=== PATIENT | male | born 1950 | race African-American/Black ===

== ENCOUNTER 2021-06-30 09:58 | Inpatient (IN) | payer MEDICARE, OTHER ==
[~2021-06-30] VITALS: Ht 172.7 cm; Wt 73.0 kg
[2021-06-30 12:14] LABS: MEAN CORPUSCULAR HEMOGLOBIN 29.7 pg (28.0-32.0); MEAN CORPUSCULAR VOLUME 89.5 fL (80.0-94.0); MEAN PLATELET VOLUME 9.6 fl (7.4-10.4); PLATELET 58 x1000/uL (130-400); RED BLOOD CELL COUNT 2.23 mill/uL (4.7-6.1); RED CELL DISTRIBUTION WIDTH 16.1 % (11.6-14.6)
[2021-06-30 12:21] LABS: HEMATOCRIT. 19.9 % (42.0-52.0); HEMOGLOBIN. 6.6 g/dL (14.0-18.0)
[2021-06-30 12:22] LABS: CHLORIDE 110 mEq/L (98-107)
[2021-06-30 13:09] LABS: PLATELET ESTIMATE DECREASED
[2021-06-30 13:20] LABS: PROTHROMBIN TIME 10.8 sec (9.6-11.0)
[2021-06-30] MEDS ORDERED: TRAMADOL 50MG TABLET PO PRN (15:00)
[2021-06-30] MEDS ORDERED: CLONIDINE 0.1MG TABLET PO PRN (15:00)
[2021-06-30] MEDS ORDERED: NITROGLYCERIN 0.4MG TABLET SL SL PRN (15:00)
[2021-06-30] MEDS ORDERED: ACETAMINOPHEN 325MG TABLET PO PRN (15:00)
[2021-06-30] MEDS ORDERED: ZOLPIDEM TARTRATE 5MG TABLET PO PRN (15:00)
[2021-06-30] MEDS ORDERED: GUAIFENESIN 200MG/10ML SUGAR FREE UDC PO PRN (15:00)
[2021-06-30] MEDS ORDERED: ONDANSETRON HCL 4MG/2ML INJ IV PRN (15:00)
[2021-06-30] MEDS ORDERED: MAGNESIUM/ALUMINUM HYDROXIDE/SIMETHICONE 30ML UDC PO PRN (15:00)
[2021-06-30] MEDS ORDERED: DOCUSATE SODIUM 100MG CAPSULE PO PRN (15:00)
[2021-06-30] MEDS ORDERED: DEXTROSE 50% WATER 50ML SYRINGE IV PRN (20:15)
[2021-06-30] MEDS: IPRATROPIUM/ALBUTEROL 0.5-3(2.5)MG/3ML NEB NEB PRN (20:40)
[2021-06-30] MEDS: INSULIN LISPRO 100 UNITS/ML SUBCUT SCH (21:00)
[2021-06-30] MEDS: BLOOD SUGAR DIAGNOSTIC STRIP TEST SCH (21:00)
[2021-06-30 21:53] LABS: FOLIC ACID (FOLATE) SERUM 9.1 ng/mL (>5.38)
[2021-06-30] MEDS: LISINOPRIL 20MG TABLET PO SCH (23:15)
[2021-06-30] MEDS: FAMOTIDINE 20MG TABLET PO SCH (23:15)
[2021-06-30] MEDS: ACETAMINOPHEN 325MG TABLET PO PRN (23:15)
[2021-06-30] MEDS: ASCORBIC ACID 500 MG TABLET PO SCH (23:15)
[2021-06-30] MEDS: METOPROLOL TARTRATE 25MG TABLET PO SCH (23:16)
[2021-06-30 23:21] LABS: CREATINE KINASE 43 IU/L (39-308)
[2021-06-30 23:25] LABS: CREATINE KINASE MB FRACTION < 1.0 ng/mL (0.5-3.6)
[2021-07-01] MEDS: IPRATROPIUM/ALBUTEROL 0.5-3(2.5)MG/3ML NEB NEB PRN ×2 (01:49→09:18)
[2021-07-01] MEDS ORDERED: IPRATROPIUM BROMIDE (0.02%) 0.5MG/2.5ML NEB HHN NR (03:15)
[2021-07-01] MEDS ORDERED: METHYLPREDNISOLONE SOD SUCC 125 MG/2 ML VIAL IV NR (03:15)
[2021-07-01] MEDS ORDERED: ALBUTEROL (0.083%) 2.5MG/3ML NEB HHN NR (03:15)
[2021-07-01] MEDS ORDERED: MAGNESIUM 2 G PREMIX 50 ML IV ONE (05:15)
[2021-07-01 05:57] LABS: HEMOGLOBIN. 8.4 g/dL (14.0-18.0); MEAN CORPUSCULAR HEMOGLOBIN 28.9 pg (28.0-32.0); MEAN CORPUSCULAR VOLUME 85.9 fL (80.0-94.0); MEAN PLATELET VOLUME 10.1 fl (7.4-10.4); RED BLOOD CELL COUNT 2.91 mill/uL (4.7-6.1); RED CELL DISTRIBUTION WIDTH 16.3 % (11.6-14.6)
[2021-07-01 05:58] LABS: CHLORIDE 107 mEq/L (98-107)
[2021-07-01 06:05] LABS: PLATELET 48 x1000/uL (130-400)
[2021-07-01 06:11] LABS: PHOSPHORUS 3.1 mg/dL (2.5-4.9)
[2021-07-01 06:14] LABS: CREATINE KINASE 70 IU/L (39-308)
[2021-07-01 06:18] LABS: CREATINE KINASE MB FRACTION 1.5 ng/mL (0.5-3.6)
[2021-07-01] MEDS ORDERED: IOHEXOL-350 100 ML BOTTLE ONE (06:25)
[2021-07-01] MEDS: INSULIN LISPRO 100 UNITS/ML SUBCUT SCH ×4 (07:00→21:00)
[2021-07-01] MEDS: BLOOD SUGAR DIAGNOSTIC STRIP TEST SCH ×4 (07:16→21:42)
[2021-07-01] MEDS: METOPROLOL TARTRATE 25MG TABLET PO SCH ×2 (09:00→21:41)
[2021-07-01] MEDS ORDERED: SPIRONOLACTONE 50MG TABLET PO SCH (11:30)
[2021-07-01] MEDS: ASCORBIC ACID 500 MG TABLET PO SCH ×2 (12:46→21:41)
[2021-07-01] MEDS: CHOLECALCIFEROL (D3) 1000 UNIT TABLET PO SCH (12:46)
[2021-07-01] MEDS: FUROSEMIDE 40MG/4ML VIAL IVP SCH (12:47)
[2021-07-01] MEDS: FAMOTIDINE 20MG TABLET PO SCH ×2 (12:47→21:41)
[2021-07-01] MEDS: ZINC SULFATE 220 MG ( 50 ) CAPSULE PO SCH (13:00)
[2021-07-01] MEDS: LISINOPRIL 20MG TABLET PO SCH ×2 (13:14→21:42)
[2021-07-01 18:07] LABS: PLATELET ESTIMATE MARKEDLY DECREASED
[2021-07-01] MEDS ORDERED: IPRATROPIUM/ALBUTEROL 0.5-3(2.5)MG/3ML NEB HHN PRN (18:15)
[2021-07-01] MEDS: ACETAMINOPHEN 325MG TABLET PO PRN (19:22)
[2021-07-01 20:00] VITALS: BP 117/49
[2021-07-01] MEDS: IPRATROPIUM/ALBUTEROL 0.5-3(2.5)MG/3ML NEB HHN SCH (20:46)
[2021-07-01 22:14] VITALS: BP 151/76
[2021-07-02] VITALS (9 sets, daily range): BP systolic 102–146; BP diastolic 61–91
[2021-07-02 02:23] LABS: CLARITY URINE CLEAR (CLEAR); COLOR URINE YELLOW (YELLOW); KETONES URINE NEGATIVE (NEGATIVE); LEUKOCYTE ESTERASE URINE NEGATIVE (NEGATIVE); NITRITE URINE NEGATIVE (NEGATIVE); OCCULT BLOOD URINE NEGATIVE (NEGATIVE); PH URINE 5.5 (4.5-8.0); PROTEIN URINE NEGATIVE (NEGATIVE); SPECIFIC GRAVITY URINE 1.023 (1.005-1.030)
[2021-07-02] MEDS: BLOOD SUGAR DIAGNOSTIC STRIP TEST SCH ×4 (06:31→21:08)
[2021-07-02] MEDS: INSULIN LISPRO 100 UNITS/ML SUBCUT SCH ×4 (06:32→21:00)
[2021-07-02] MEDS: IPRATROPIUM/ALBUTEROL 0.5-3(2.5)MG/3ML NEB HHN SCH (06:43)
[2021-07-02 08:10] LABS: MEAN CORPUSCULAR HEMOGLOBIN 28.5 pg (28.0-32.0); MEAN CORPUSCULAR VOLUME 86.3 fL (80.0-94.0); MEAN PLATELET VOLUME 9.7 fl (7.4-10.4); RED BLOOD CELL COUNT 2.38 mill/uL (4.7-6.1); RED CELL DISTRIBUTION WIDTH 16.1 % (11.6-14.6)
[2021-07-02 08:23] LABS: HEMATOCRIT. 20.6 % (42.0-52.0); HEMOGLOBIN. 6.8 g/dL (14.0-18.0); PLATELET 50 x1000/uL (130-400)
[2021-07-02 08:38] LABS: CHLORIDE 107 mEq/L (98-107)
[2021-07-02] MEDS: FUROSEMIDE 40MG/4ML VIAL IVP SCH (09:50)
[2021-07-02] MEDS: CHOLECALCIFEROL (D3) 1000 UNIT TABLET PO SCH (09:51)
[2021-07-02] MEDS: METOPROLOL TARTRATE 25MG TABLET PO SCH ×2 (09:51→21:07)
[2021-07-02] MEDS: ACETAMINOPHEN 325MG TABLET PO PRN ×2 (09:51→18:42)
[2021-07-02] MEDS: ZINC SULFATE 220 MG ( 50 ) CAPSULE PO SCH (09:51)
[2021-07-02] MEDS: ASCORBIC ACID 500 MG TABLET PO SCH ×2 (09:51→21:07)
[2021-07-02] MEDS: LISINOPRIL 20MG TABLET PO SCH ×2 (09:52→21:07)
[2021-07-02] MEDS: FAMOTIDINE 20MG TABLET PO SCH ×2 (09:52→21:07)
[2021-07-02] MEDS: SPIRONOLACTONE 25MG TABLET PO SCH (17:04)
[2021-07-02 17:14] LABS: PLATELET ESTIMATE DECREASED
[2021-07-02 21:13] LABS: HEMATOCRIT 23.1 % (42.0-52.0); HEMOGLOBIN 7.9 g/dL (14.0-18.0)
[2021-07-03] VITALS: BP 136/62
[2021-07-03 04:00] VITALS: BP 140/69
[2021-07-03] MEDS: IPRATROPIUM/ALBUTEROL 0.5-3(2.5)MG/3ML NEB HHN SCH ×3 (04:11→12:55)
[2021-07-03] MEDS: INSULIN LISPRO 100 UNITS/ML SUBCUT SCH ×2 (06:35→12:10)
[2021-07-03] MEDS: BLOOD SUGAR DIAGNOSTIC STRIP TEST SCH ×2 (06:35→11:40)
[2021-07-03 07:07] LABS: CHLORIDE 106 mEq/L (98-107)
[2021-07-03 07:15] LABS: HEMATOCRIT. 22.8 % (42.0-52.0); HEMOGLOBIN. 7.9 g/dL (14.0-18.0); MEAN CORPUSCULAR HEMOGLOBIN 29.6 pg (28.0-32.0); MEAN CORPUSCULAR VOLUME 85.2 fL (80.0-94.0); MEAN PLATELET VOLUME 9.5 fl (7.4-10.4); RED BLOOD CELL COUNT 2.67 mill/uL (4.7-6.1); RED CELL DISTRIBUTION WIDTH 16.2 % (11.6-14.6)
[2021-07-03 08:00] VITALS: BP 127/72
[2021-07-03] MEDS: FUROSEMIDE 40MG/4ML VIAL IVP SCH (09:37)
[2021-07-03] MEDS: ASCORBIC ACID 500 MG TABLET PO SCH (09:37)
[2021-07-03] MEDS: LISINOPRIL 20MG TABLET PO SCH (09:37)
[2021-07-03] MEDS: CHOLECALCIFEROL (D3) 1000 UNIT TABLET PO SCH (09:37)
[2021-07-03] MEDS: FAMOTIDINE 20MG TABLET PO SCH (09:37)
[2021-07-03] MEDS: SPIRONOLACTONE 25MG TABLET PO SCH (09:38)
[2021-07-03] MEDS: METOPROLOL TARTRATE 25MG TABLET PO SCH (09:38)
[2021-07-03] MEDS: ZINC SULFATE 220 MG ( 50 ) CAPSULE PO SCH (09:39)
[2021-07-03 12:00] VITALS: BP 135/66
[2021-07-03 13:32] VITALS: BP 135/66
[2021-07-03 14:18] LABS: PLATELET ESTIMATE MARKEDLY DECREASED
[2021-07-03 14:19] LABS: PLATELET 50 x1000/uL (130-400)
== END 2021-07-03 13:00 | disposition home or self-care (01) | DRG 811 ==
LOC: ER 09:58 → MICUSO 14:43 → EDBEDREQ 14:50 → EDBEDREQTM 14:50 → SUPCPDRO 14:53 → EDBEDREQSVC 07-01 11:50 → EDBEDREQ 07-01 11:50 → 7EST 07-01 15:51
PROVIDERS: ADMIT Internal Medicine; ATTEND Internal Medicine
PROC: 30233N1 Transfusion of Nonautologous Red Blood Cells into Peripheral Vein, Percutaneous Approach (ICD-10-PCS; principal; 2021-06-30)
PROC: 5A09357 Assistance with Respiratory Ventilation, Less than 24 Consecutive Hours, Continuous Positive Airway Pressure (ICD-10-PCS; 2021-07-01)
DX: D64.81 Anemia due to antineoplastic chemotherapy (principal); J96.00 Acute respiratory failure, unspecified whether with hypoxia or hypercapnia; I50.31 Acute diastolic (congestive) heart failure; C91.10 Chronic lymphocytic leukemia of B-cell type not having achieved remission; D69.6 Thrombocytopenia, unspecified; E11.9 Type 2 diabetes mellitus without complications; I11.0 Hypertensive heart disease with heart failure; J45.909 Unspecified asthma, uncomplicated; T45.1X5A Adverse effect of antineoplastic and immunosuppressive drugs, initial encounter; R16.2 Hepatomegaly with splenomegaly, not elsewhere classified; R59.0 Localized enlarged lymph nodes; Z20.822 Contact with and (suspected) exposure to COVID-19; Z79.899 Other long term (current) drug therapy
CPT/HCPCS: 36415; 71045; 71275; 80048; 80053; 80061; 81003; 82270; 82550; 82553; 82607; 82728; 82746; 82962; 83036; 83540; 83550; 83615; 83735; 83880; 84100; 84145; 84484; 84550; 85014; 85018; 85025; 85379; 86850; 86900; 86920; 87426; 93005; 93306; 93970; 94640; 94660; 99291; J1815; J1940; J2930; J3475; P9016; Q9967